=== PATIENT | male | born 1965 | race Caucasian/White ===

== ENCOUNTER 2024-12-12 16:18 | Inpatient (IN) | payer OTHER, SELFPAY ==
[2024-12-12] VITALS (27 sets, daily range): BP systolic 112–183; BP diastolic 70–136; PULSE 57–88; RESP 11–32; TEMP 36.8; O2SAT 90–96; BMI 33.5; BMI 33.9
--- NOTE | 2024-12-12 16:20 | XRR_ITS ---
PROCEDURE INFORMATION: Exam: XR Chest Exam date and time: 12/12/2024 4:23 PM Age: 59 years old Clinical indication: Pain; Chest pressure; Additional info: Chest pain; Stemi TECHNIQUE: Imaging protocol: Radiologic exam of the chest. 1 image(s) are submitted. Views: 1 view. COMPARISON: No relevant prior studies available. FINDINGS: Lungs: Low bilateral lung volume especially on the right side. Pleural spaces: Unremarkable. No pleural effusion. No pneumothorax. Heart/Mediastinum: Unremarkable. No cardiomegaly. Bones/joints: Unremarkable. XR/XR chest 1V portable [id number] IMPRESSION: Low bilateral lung volume especially on the right side. No focal pulmonary infiltrate, effusion or pneumothorax.
--- NOTE | 2024-12-12 16:20 | ECG_ITS ---
[employer] Test Date: 2024-12-12 Pat Name: Paul Shields Department: Room: Gender: Male Social Media Director: : 1965 Requested By: Ellyn Lackey Order Number: [id number] Moe MD: APURVA GILBERT Measurements Intervals [place] Rate: 94 P: 68 TN: 189 QRS: 37 QRSD: 82 T: 52 QT: 326 QTc: 408 Interpretive Statements SINUS RHYTHM ST ELEVATION, PROBABLY EARLY REPOLARIZATION [ST ELEVATION WITH NORMALLY INFLECTED T-WAVE] INTERPRETATION BASED ON A DEFAULT AGE OF 40 YEARS No previous ECG available for comparison Electronically Signed On 12-14-2024 10:50:18 CDT by APURVA GILBERT [id number]
--- NOTE | 2024-12-12 16:22 | W.ED.CHESTPA ---
HPI - Chest Pain General: Chief Complaint: Chest Pain Stated Complaint: cp Time Seen by Provider: 12/12/24 16:20 History of Present Illness: 59-year-old man with a history of diabetes and seizures who presents emergency room by ambulance for chest pain. This started approximately about an hour ago while he was outside working in his yard. He is continue to have some chest pain. EMS called and there was some abnormalities on EKG but there is quite a bit of interference. Discussed this with cardiology prior to arrival and at this point we were unclear about his symptoms and they were only about 5 minutes out so got him here and did an EKG and notify cardiology and a STEMI was called immediately after arrival. He says that he had had an heart attack before and had a cath but then they told him there was nothing wrong with his heart. This was over 10 years ago he says. Continues to have substernal chest pain and pressure. Related Data Allergies Allergy/AdvReac Type Severity Reaction Status Date / Time Sulfa (Sulfonamide Allergy Unknown Verified 12/12/24 16:26 Antibiotics) Review of Systems Narrative: Constitutional symptoms: Negative except as documented in HPI. Skin symptoms: Negative except as documented in HPI. Eye symptoms: Negative except as documented in HPI. ENMT symptoms: Negative except as documented in HPI. Respiratory symptoms: Negative except as documented in HPI. Cardiovascular symptoms: Negative except as documented in HPI. Gastrointestinal symptoms: Negative except as documented in HPI. Genitourinary symptoms: Negative except as documented in HPI. Musculoskeletal symptoms: Negative except as documented in HPI. Neurologic symptoms: Negative except as documented in HPI. Psychiatric symptoms: Negative except as documented in HPI. Endocrine symptoms: Negative except as documented in HPI. Physical Exam Narrative: EXAM NARRATIVE: General: Alert, no acute distress. Skin: Warm, dry. Head: Normocephalic, atraumatic. Neck: Supple, trachea midline. Eye: Extraocular movements are intact. Ears, nose, mouth and throat: mucosa moist. Cardiovascular: Regular, Normal peripheral perfusion. Respiratory: Lungs are clear to auscultation, respirations are non-labored, breath sounds are equal, Symmetrical chest wall expansion. Gastrointestinal: Soft, Nontender, Non distended Musculoskeletal: Normal ROM, no deformity. Neurological: Alert and oriented, No focal neurological deficit observed. Psychiatric: Cooperative, appropriate mood & affect. Course Vital Signs: Vital signs: Vital Signs Temperature 98.2 F 09/06/25 16:20 Pulse Rate 88 12/12/24 16:20 Respiratory Rate 18 12/12/24 16:20 Blood Pressure 143/92 12/12/24 16:32 Pulse Oximetry 96 12/12/24 16:20 Oxygen Delivery Me thod Room Air 12/12/24 16:20 MDM - Chest Pain Medical Decision Making Differential diagnosis for patient with chest pain includes but is not limited to and based on the above HPI, review of systems and physical exam: Pneumonia. unstable angina. angina. Acute coronary syndrome / [place]. Pulmonary embolism. Costochondritis / musculoskeletal. Pleurisy. Pericarditis. Esophageal spasm. Pancreatis. Cholecystitis. Orders placed to evaluate differential diagnosis based on the above differential, HPI and physical exam EKG: Time 1618. Rate 94. Normal sinus rhythm, ST elevation versus early repolarization in inferior leads., no ectopy, normal UT & QRS intervals, This was reviewed and interpreted by myself the ER physician at 1619 Lab Review: Laboratory results were reviewed and interpreted by myself the emergency room physician. Lab work is pending at the time of Senior Software Qa Analyst. Consultation: I spoke with Dr. Vasques who is on-call for cardiology. He reviewed the EKG. Given the patient is having active chest pain and abnormal EKG we are taking him straight to the Senior Software Qa Analyst. Senior Software Qa Analyst was activated. Assessment and plan: Chest pain Abnormal EKG ?Patient took a large amount of BC powder earlier. Over 800 mg. No aspirin here. He is receiving 600 of Plavix and a heparin bolus here in the emergency room. -I discussed the patient with the runner man on-call who is taking the patient to the Senior Software Qa Analyst.. - Discussed findings and plan with patient. Answered any questions. - Evaluation and treatment of this problem were appropriate in the emergency setting Lab Data 12/12/24 16:23 12/12/24 16:23 Laboratory Results WBC 9.79 10^3/uL (3.29-11.43) 12/12/24 16:23 RBC 6.39 10^6/uL (3.85-5.65) H 12/12/24 16:23 Hgb 17.60 g/dL (11.27-16.99) H 12/12/24 16:23 Hct 52.3 % (37-53) 12/12/24 16:23 MCV 81.8 fl (82-101) L 12/12/24 16:23 MCH 27.5 pg (27-33) 12/12/24 16:23 MCHC 33.7 g/dL (30-55) 12/12/24 16:23 RDW 12.2 % (12.1-15.1) 12/12/24 16:23 Plt Count 258 10^3/cmm (157-399) 12/12/24 16:23 MPV 8.9 fL (7.4-10.4) 12/12/24 16:23 Neut % (Auto) 61.7 % 12/12/24 16:23 Lymph % (Auto) 29.8 % 12/12/24 16:23 [place] % (Auto) 7.4 % 12/12/24 16:23 Eos % (Auto) 0.2 % 12/12/24 16:23 Baso % (Auto) 0.6 % 12/12/24 16:23 Neut # (Auto) 6.04 10^3/uL (1.8-7.7) 12/12/24 16:23 Lymph # (Auto) 2.9 10^3/uL (0.8-4.8) 12/12/24 16:23 [place] # (Auto) 0.7 10^3/uL (0.2-0.9) 12/12/24 16:23 Eos # (Auto) 0.0 10^3/uL (0.0-0.8) 12/12/24 16:23 Baso # (Auto) 0.1 10^3/uL (0.0-0.1) 12/12/24 16:23 Nucleated RBC % (auto) 0 % 12/12/24 16:23 Nucleated RBCs # 0.0 /100WBC 12/12/24 16:23 Sodium 139 mmol/L (136-145) 12/12/24 16:23 Potassium 4.2 mmol/L (3.5-5.1) 12/12/24 16:23 Chloride 103 mmol/L (98-107) 12/12/24 16:23 Carbon Dioxide 21 mmol/L (22-29) L 12/12/24 16:23 Anion Gap 19.2 (5-19) H 12/12/24 16:23 BUN 11 mg/dL (6-20) 12/12/24 16:23 Creatinine 0.4 mg/dL (0.7-1.2) L 12/12/24 16:23 GFR Calculation 220.2 mL/min (90-130) H 12/12/24 16:23 Glucose 165 mg/dL (65-115) H 12/12/24 16:23 Calculated Osmolality 291 mOsm/kg (285-295) 12/12/24 16:23 Calcium 9.6 mg/dL (8.5-10.5) 12/12/24 16:23 Total Bilirubin 0.4 mg/dL (0.15-1.2) 12/12/24 16:23 AST 23 U/L (0-40) 12/12/24 16:23 ALT 36 U/L (0-41) 12/12/24 16:23 Alkaline Phosphatase 90 U/L (40-130) 12/12/24 16:23 Troponin T Baseline 13 ng/L (0-15) 12/12/24 16:23 NT-Pro-B Natriuret Pep 37 pg/mL (0-125) 12/12/24 16:23 Total Protein 7.1 g/dL (6.6-8.7) 12/12/24 16:23 Albumin 4.6 g/dL (3.5-5.2) 12/12/24 16:23 Globulin 2.5 g/dL (1.3-4.6) 12/12/24 16:23 No radiology studies performed this visit Discharge Plan Discharge Patient Disposition: Admitted As Inpatient Clinical Impression: Unstable angina, Abnormal ECG Condition: Stable Coding Level of Care Code ED Safety Investigator/Cause Analyst for [employer]
[2024-12-12 16:29] LABS: Hematocrit 52.3 % (37-53); Hemoglobin 17.60 g/dL (11.27-16.99); Mean Corpuscular HGB Conc 33.7 g/dL (30-55); Mean Corpuscular Hemoglobin 27.5 pg (27-33); Mean Corpuscular Volume 81.8 fl (82-101); Nucleated Red Blood Cells % 0 %; Platelet Count 258 10^3/cmm (157-399); Red Blood Count 6.39 10^6/uL (3.85-5.65); White Blood Count 9.79 10^3/uL (3.29-11.43)
[2024-12-12] MEDS: heparin 5,000 unit/mL INJ 1 mL 4000 UNIT IVP (16:33)
[2024-12-12 16:48] LABS: Troponin(5th) Baseline 13 ng/L (0-15)
--- NOTE | 2024-12-12 16:48 | P.HP_ITS ---
Providers/Chief Complaint 2 Admitting Physician: Bird Vasques MD/ Interventional Cardiology Chief Complaint: Chest pain History of Present Illness Paul Shields is a 59 year old male with prior cardiac catheterizations per patient done in [place], has been brought by EMS with complaints of severe substernal chest pain radiating to the jaw and neck. Started this afternoon. Still having it. EKG shows Q waves in inferior leads with borderline ST elevation in inferior leads not meeting STEMI criteria. Cardiac labour market economist activated emergently. Review of Systems 2 Card: Reports: chest pain Medications/Allergies Allergies Allergy/AdvReac Type Severity Reaction Status Date / Time Sulfa (Sulfonamide Allergy Unknown Verified 12/12/24 16:26 Antibiotics) Vitals/I&O/Wt Last Vital Signs Temp 98.2 F 12/12/24 16:20 Pulse 88 12/12/24 16:20 Resp 18 12/12/24 16:20 BP 143/92 12/12/24 16:32 Pulse Ox 96 12/12/24 16:20 O2 Del Method Room Air 12/12/24 16:20 Weight last 48 hrs Weight 247 lb Physical Exam 2 Narrative: GENERAL: Patient is alert, awake and oriented x3. [] NECK: No jugular vein distension. [] HEENT: No cyanosis. No icterus. No pallor. [] HEART: Regular S1 and S2. No murmur, rub or gallop. [] LUNGS: Clear to auscultate bilaterally. [] CENTRAL NERVOUS SYSTEM: Grossly nonfocal. [] EXTREMITIES: Lower extremities with no edema bilaterally. Data 12/12/24 16:23 12/12/24 16:23 A&P Assessment and plan 1. Unstable angina: 2. Abnormal EC. Diabetes: Plan: Patient's chest pain is typical however EKG has borderline ST elevation and Q waves in inferior leads but not meeting STEMI criteria. Given his presentation, we will proceed with coronary angiogram with possible PCI. Risks and benefits of the procedure have been discussed with the patient. He understands these and wants to proceed. Patient took aspirin at home. Plavix loaded. Heparin bolus given Post procedure we will obtain echocardiogram. There are no labs in our system from before. Will follow up on labs We will consult medicine team post procedure for medical management PDMP PDMP Reviewed: Not Reviewed Attestations 2 Medical Necessity Statement*: Care expected to cross 2 midnights. Patient has presented with chest pain and EKG appears ischemic. Presentation of unstable angina, patient going urgently to labour market economist Coding Level of Care Code Acute Code for [facility] Fwd Diagnoses Unstable angina I20.0 Abnormal ECG R94.31 Diabetes E11.9
[2024-12-12 16:57] LABS: Alanine Aminotransferase 36 U/L (0-41); Albumin Level 4.6 g/dL (3.5-5.2); Alkaline Phosphatase 90 U/L (40-130); Aspartate Amino Transferase 23 U/L (0-40); Blood Urea Nitrogen 11 mg/dL (6-20); Calcium 9.6 mg/dL (8.5-10.5); Carbon Dioxide 21 mmol/L (22-29); Chloride 103 mmol/L (98-107); Globulin 2.5 g/dL (1.3-4.6); Glucose 165 mg/dL (65-115); NT Pro B Type Natriuretic Pept 37 pg/mL (0-125); Osmolality Calculated 291 mOsm/kg (285-295); Sodium 139 mmol/L (136-145); Total Protein 7.1 g/dL (6.6-8.7)
[2024-12-12 17:03] LABS: Creatinine Clr Calc Pharmacy 256.9916
[2024-12-12 17:04] LABS: Anion Gap 19.2 (5-19); Potassium 4.2 mmol/L (3.5-5.1)
--- NOTE | 2024-12-12 18:17 | PM.PROC ---
Procedure Note: Date of procedure: 12/12/24 Pre-procedure diagnosis: Unstable angina Post-procedure diagnosis: other (Severe proximal LAD stenosis s/p PCI with 2 stents) Procedure: Severe proximal LAD serial lesions s/p PCI with 2 stents. Patent RCA and LCx Dual antiplatelet therapy with aspirin and plavix High intensity statin therapy Order echocardiogram Performing Provider: Bird Vasques Estimated blood loss (mL): 10 Complications: None Condition: stable Disposition: ICU Coding Level of Care Code Acute Code for [employer]
--- NOTE | 2024-12-12 18:20 | ECG_ITS ---
[employer] Test Date: 2024-12-12 Pat Name: Paul Shields Department: Room: [facility]05 Gender: Male Senior Python Developer: : 1965 Requested By: Ellyn Lackey Order Number: [id number] Moe MD: APURVA GILBERT Measurements Intervals [place] Rate: 82 P: 65 [place]: 190 QRS: 28 QRSD: 105 T: 49 QT: 371 QTc: 435 Interpretive Statements SINUS RHYTHM POSSIBLE INFERIOR MYOCARDIAL INFARCTION , OF INDETERMINATE AGE [30 ms Q WAVE IN II/aVF] Compared to ECG 12/12/2024 16:18:58 Myocardial infarct finding now present ST (T wave) deviation no longer present Early repolarization no longer present Electronically Signed On 12-14-2024 10:55:01 CDT by APURVA GILBERT [email or web address] [id number]
--- NOTE | 2024-12-12 18:20 | PC.NURSE ---
Pt here for cardiac cath rn TR band noted to the right wrist with 16 ml of air in the TR band. Upon cardiac cath rn assessment a 2nd TR band was applied with 10 ml of air above original TR band for increased edema proximal to the TR band. aquatic life laborer staff unsure if this was due to tissue displacement or the beginning of a hematoma. Will closely monitor.
--- NOTE | 2024-12-12 18:52 | CTR_ITS ---
PROCEDURE INFORMATION: Exam: CTA Chest With Contrast Exam date and time: 12/12/2024 8:03 PM Age: 59 years old Clinical indication: Pain; Chest pressure; Prior surgery; Surgery date: Post-operative (0-2 days); Surgery type: Cardiac stent x 2; Additional info: Chest pain, immobility TECHNIQUE: Imaging protocol: Computed tomographic angiography of the chest with contrast. Exam focused on the arteries. 248 image(s) are submitted. 3D rendering (Not supervised by radiologist): MIP and/or 3D reconstructed images were created by the technologist. Radiation optimization: All CT scans at this facility use at least one of these dose optimization techniques: automated exposure control; mA and/or kV adjustment per patient size (includes targeted exams where dose is matched to clinical indication); or iterative reconstruction. Contrast material: [id number]; Contrast volume: 71 ml; Contrast route: INTRAVENOUS (IV); COMPARISON: CR (CHEST, ) 12/12/2024 4:23 PM RADIATION DOSE METRICS: Total DLP (mGy-cm): 473.33 FINDINGS: Pulmonary arteries: No evidence of pulmonary embolism. Right hilar mild lymphadenopathy. Extensive coronary artery calcification with coronary stent. No evidence of aortic aneurysm or dissection. Aorta: See Pulmonary arteries finding. Lungs: Hypoventilation of both lung with diffuse ground-glass opacity. No suspicious pulmonary nodule, infiltrate, effusion or pneumothorax. Pleural spaces: See Lungs finding. Heart: Unremarkable. No cardiomegaly. No pericardial effusion. Lymph nodes: See Pulmonary arteries finding. Intraperitoneal space: Metallic foreign body within transverse colon, partially visualized in the upper abdomen seen on image number [id number] with unclear etiology and clinical significance. No evidence of constipation or small bowel obstruction. No pneumoperitoneum. Bones/joints: Unremarkable. No acute fracture. Soft tissues: Unremarkable. CT/CT angio chest PE protcl [id number] IMPRESSION: 1. No evidence of pulmonary embolism. Right hilar mild lymphadenopathy. Extensive coronary artery calcification with coronary stent. No evidence of aortic aneurysm or lillian evidence of dissection. 2. Metallic possibly safia like foreign body 1.7 cm in diameter within transverse colon, partially visualized in the upper abdomen seen on image number [id number] with unclear etiology and clinical significance. No evidence of constipation or small bowel obstruction. No pneumoperitoneum. Follow-up x-ray of the abdomen with two-view is recommended. 3. Hypoventilation of both lung with diffuse ground-glass opacity. No suspicious pulmonary nodule, infiltrate, effusion or pneumothorax.
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
[2024-12-12] MEDS: morphine 4 mg/mL SDV 1 mL 2 MG IVP (19:16)
[2024-12-12] MEDS: iohexol 350 mg/mL 500 mL Btl (per mL) IV (20:05)
[2024-12-12 20:31] LABS: Cholesterol 292 mg/dL (0-200); HDL Cholesterol 44 mg/dL (60-100); Triglycerides 268 mg/dL (0-150)
[2024-12-12 20:49] LABS: Estmated Average Glucose 200; Hemoglobin A1C 8.6 % (4.0-6.0)
--- NOTE | 2024-12-12 22:00 | PC.NURSE ---
Addendum entered by Mila Manuel RN 12/13/24 03:33: 1st TR band removed at 0006, no bleeding or signs of hematoma air removal times 2 cc out 2216 2 cc out 2230 2 cc out 2230 2 cc out 2245 2 cc out 2302 2 cc out 2319 2 cc out 2336 2 cc out 2353 2 cc out 0005 Original Note: 2nd TR band removed at 2159. No signs of worsening of previously documented hematoma. No bleeding at access site Air removal times listed below 1 cc out at 2044 2cc out at 2101 2 cc out at 2116 2 cc out at 2131 2 cc out at 2146 1 cc out at 2158 RN will now begin to withdraw air from first TR Band
[2024-12-12 22:05] LABS: Troponin 5 6HR 53.46 ng/L (0-15)
[2024-12-12 22:08] LABS: Troponin 5 6HR Delta 40.46 ng/L (0-12)
--- NOTE | 2024-12-12 22:20 | ECG_ITS ---
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
[2024-12-12 23:28] LABS: PCP Screen Urine Negative (Negative)
[2024-12-13] VITALS (16 sets, daily range): BP systolic 119–153; BP diastolic 71–82; PULSE 57–71; RESP 14–27; TEMP 36.4–36.9; O2SAT 90–100
[2024-12-13 04:30] LABS: Hematocrit 46.0 % (37-53); Hemoglobin 15.20 g/dL (11.27-16.99); Mean Corpuscular HGB Conc 33.0 g/dL (30-55); Mean Corpuscular Hemoglobin 27.8 pg (27-33); Mean Corpuscular Volume 84.1 fl (82-101); Nucleated Red Blood Cells % 0 %; Platelet Count 208 10^3/cmm (157-399); Red Blood Count 5.47 10^6/uL (3.85-5.65); White Blood Count 6.63 10^3/uL (3.29-11.43)
[2024-12-13 05:03] LABS: Anion Gap 13.8 (5-19); Blood Urea Nitrogen 10 mg/dL (6-20); Calcium 8.6 mg/dL (8.5-10.5); Carbon Dioxide 24 mmol/L (22-29); Chloride 106 mmol/L (98-107); Glucose 127 mg/dL (65-115); Osmolality Calculated 291 mOsm/kg (285-295); Potassium 3.8 mmol/L (3.5-5.1); Sodium 140 mmol/L (136-145)
[2024-12-13 05:04] LABS: Creatinine Clr Calc Pharmacy 258.6375
--- NOTE | 2024-12-13 09:13 | XRR_ITS ---
PROCEDURE INFORMATION: Exam: XR Abdomen Exam date and time: 12/13/2024 9:21 AM Age: 59 years old Clinical indication: Other: Poss foreign body; Prior surgery; Surgery date: 6+ months; Surgery type: Cardiac stents; Additional info: Transvere colon metallic mass? ? TECHNIQUE: Imaging protocol: Radiologic exam of the abdomen. Views: Frontal supine view of the abdomen. 1 View. COMPARISON: CT angio chest PE protcl [id number] 12/12/2024 8:03 PM FINDINGS: Gastrointestinal tract: Bowel-gas pattern is nonspecific. No overly distended small bowel loop. Intraperitoneal space: Previously seen metallic density in the left upper quadrant is not present on today's study. There is an incompletely imaged metallic density with a diameter of 1.4 cm in the right lower quadrant. Bones/joints: Unremarkable. XR/XR KUB portable [id number] IMPRESSION: 1. Previously seen metallic density in the left upper quadrant is not present on today's study. 2. There is an incompletely imaged metallic density with a diameter of 1.4 cm in the right lower quadrant. This can be outside patient as well. Additional image of right lower quadrant for further evaluation is advised.
--- NOTE | 2024-12-13 10:06 | PC.PHAR ---
Addendum entered by Nancy Laguerre 12/13/24 10:34: [facility] [place]. Phone number for pharmacy in that area is [phone]. Verified medications with Rosanna Bingham. Original Note: Pt does not know what medications he takes. Left a message for his Irma, to call back for verification of medications. No word yet. 10:07am 12/12/24
--- NOTE | 2024-12-13 11:45 | P.PN_ITS ---
Subjective 2 Subjective: - Patient was seen this morning - No chest pain overnight - No fevers, no chills, no nausea, no vo miting abdominal pain - Discussed importance of aspirin and Pl avix especially now with his cardiac stent -High risk of stent thrombosis if he sto ps taking aspirin and Plavix - If any recurrent [facility] - [facility] Follow-up with cardiology - Discussed the CT scan finding shows 1. 7 cm metallic safia within the transverse colon - KUB this morning shows previously seen metallic density in the left upper quadrant is not present, potentially has moved to the right lower quadrant - Patient denies any swallowing batterie s or any bullets, or any metallic object - That he has been losing his teeth fill ing and he thinks he swallowed 1 recently - Likely it could be his metallic teeth filling - Currently no abdominal pain, no consti pation, no blood black stools discussed with him at that if he develops abdominal pain, or constipation or bloody black stools, or nausea or vomiting please go to the emergency room - See primary care provider this week to repeat KUB in a few days -Monitor for passage of metallic object or teeth filling - Discussed case with general surgery, Hailey Carrillo reviewed images with general surgery, they recommended continued monitoring, conservative intervention - Patient also had right hilar adenopath y, please follow-up with primary care provider, consider repeat CAT scan in 6 weeks - Hemoglobin A1c 8.6, discussed catarino puri of controlling his type 2 diabetes, blood sugar management -Blood sugar management as below -Please monitor your blood sugars closel y -Monitor your blood sugars 3 times daily as after meals -Please record your blood sugars, and a blood sugar log -For your NovoLog -Please inject blood sugar after meals b ased on sliding scale provided -Do not inject insulin if you do not eat as hypoglycemia kills -This is a NovoLog sliding scale -Insulin sliding ?fingerstick? Insulin ?141-180?0 units/sq 181-220?2 units/sq ?221-260?4 units/sq ?261-300 6 units/sq ?301-350?8 units/sq ?351-400 10 units/sq ?401-450?12 units/sq >450? 14units/sq -If your blood sugar is greater than 500 go to the emergency room -If your blood sugar is less than 60 or at anytime you feel lightheaded or dizzy or diaphoretic or have chest palpitations check your blood sugar, and eat a hard candy or drink orange juice and go immediately to the emergency room -Remember hypoglycemia kills, so if his blood sugar is less than 60 we have to increase it by taking in a sugary meal such as a hard candy or orange juice and go to the emergency room -If you have any questions please call u s where here to help - If you have any chest pain please go t o emergency room - Please follow-up with your primary car e provider next week for repeat KUB - If you have sudden onset abdominal astrid n, nausea, vomiting, or constipation please go to emergency room - You will likely pass a metallic object in your stool, continue to monitor - If you have chest pain please go to e emergency room, use nitroglycerin as needed for chest pain - Please monitor blood sugars closely, A 1c is 8.6 - Triglycerides is 268, cholesterol 292, LDL 194 -declines taking statin, discharged on e zetimibe -Monitor lipid panel as outpatient Vitals/I&O/Wt Last Vital Signs Temp 97.6 F 12/13/24 09:00 Pulse 60 12/13/24 06:00 Resp 22 H 12/13/24 06:00 BP 142/72 12/13/24 06:00 Pulse Ox 95 12/13/24 06:00 O2 Del Method Room Air 12/13/24 04:00 FiO2 2 12/12/24 19:00 12/12/24 12/13/24 12/13/24 22:59 06:59 14:59 Intake Total 667.5 / 667.5 1222 / 1222 Output Total 800 / 800 1200 / 2000 800 / 800 Balance -800 / -800 -532.5 / -1332.5 422 / 422 Weight last 48 hrs Weight 113.398 kg Weight 113.5 kg Weight 112.037 kg Physical Exam 2 Const: COMMON NORMALS: no acute distress and patient oriented x3 HENMT: COMMON NORMALS: normocephalic HEAD & SCALP: normocephalic Resp: COMMON NORMALS: normal respiratory effort, No retractions, No use of accessory muscles and clear to auscultation bilaterally AUSCULTATION: clear to auscultation bilaterally Cardio: COMMON NORMALS: regular rate, regular rhythm, S1 normal heart sound present and S2 normal heart sound present RATE: regular rate RHYTHM: r egular rhythm HEART SOUNDS: S1 normal heart sound present and S2 normal heart sound present GI: COMMON NORMALS: Normal to inspection, nondistended, normoactive bowel sounds present, Soft to palpation, non-tender, No hepatosplenomegaly present, no masses and no bruits PALPATION: Yes Soft to palpation and Yes No hepatosplenomegaly present OTHER: No guarding, no rebound, no rigidity Extremity: COMMON NORMALS: no calf tenderness and no pedal edema Neuro: COMMON NORMALS: patient oriented x3 Psych: COMMON NORMALS: mental status grossly normal Data 12/13/24 03:19 12/13/24 03:19 A&P Assessment and plan 1. STEMI (ST elevation myocardial infarction): 2. Diabetes: 3. History of epilepsy: 4. Chest pain: Plan: STEMI - Status post 2 stents to proximal LAD - On aspirin, statin Persistent chest pain, immobility, fall history - CT angiogram of chest negative for PE -increase IV fluids to 150 cc an hour decreased risk of contrast-induced neuropathy, will discharge this morning - Have primary care provider monitor kidney function as outpatient, hydrate well at home Anxiety, Xanax 0.5 mg twice daily Type 2 diabetes mellitus, A1c 8.6 Low-dose insulin/scale on discharge 1.4 to 1.7 cm metallic order transverse colon, possibly moving into right lower quadrant - Potential dental filling - Discussed with him to monitor closely - If any abdominal pain or nausea or vomiting or lack of stooling go to emergency room - Follow-up with primary care provider this week for repeat KUB Right hilar adenopathy, repeat CAT scan in 1 month History of epilepsy, continue Lamictal Patient will be discharged today PDMP PDMP Reviewed: Not Reviewed Attestations 2 Medical Necessity Statement*: Patient will be discharged today Diagnoses STEMI (ST elevation myocardial infarction) I21.3 Diabetes E11.9 History of epilepsy Z86.69 Chest pain R07.9
--- NOTE | 2024-12-13 12:44 | PC.NURSE ---
Patient brought to personal vehicle via wheelchair on room air. Patient discharge packet reviewed with patient and his . Extensive education provided on new medications. Written education reviewed with patient and family. Patient had no questions. Education provided on follow up appointment.
--- NOTE | 2024-12-13 13:42 | P.DS_ITS ---
Discharge Providers Date of Admission: 12/12/24 18:17 Date of Discharge: December 13, 2024 Attending Provider at Admission: Bird Vasques M.D Attending Provider at Discharge: Bird Vasques M.D Diagnoses at Discharge Discharge Diagnosis 1. Unstable angina: 2. Diabetes: 3. History of epilepsy: 4. Chest pain: 5. NSTEMI (non-ST elevated myocardial infarction): Reason for Visit Reason for Visit: Chest pain Brief History: 59 year old male with prior cardiac cath eterizations per patient done in [place], has been brought by EMS with complaints of severe substernal chest pain radiating to the jaw and neck. Started this afternoon. Still having it. EKG shows Q waves in inferior leads with borderline ST elevation in inferior leads not meeting STEMI criteria. 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 Hospital Course Hospital Course Patient had severe LAD stenosis and had PCI with 2 stents. Had CTA also performed not showing PE. Medicine team was consulted for medical issues management. CAT scan showed right hilar adenopathy and will need follow up imaging with PCP per medicine team . Patient discharged home on dual antiplatelet therapy in a stable condition. Close cardiology follow up. Physical Exam Narrative: GENERAL: Patient is alert, awake and oriented x3. [] NECK: No jugular vein distension. [] HEENT: No cyanosis. No icterus. No pallor. [] HEART: Regular S1 and S2. No murmur, rub or gallop. [] LUNGS: Clear to auscultate bilaterally. [] CENTRAL NERVOUS SYSTEM: Grossly nonfocal. [] EXTREMITIES: Lower extremities with no edema bilaterally. Discharge Data Studies Completed and Pending Completed Studies During Hospitalization Category Date Time Status CT angio chest PE protcl [id number] Stat Cat Scan 12/12/24 18:52 Completed XR KUB portable [id number] Stat Exams 12/13/24 09:13 Completed XR chest 1V portable [id number] Stat Exams 12/12/24 16:20 [place] [id number] Routine Ultrasound 12/13/24 18:32 Completed CV. echo complete* [id number] Routine Ultrasound 12/13/24 18:25 Completed Pending at discharge Category Date Time Status COMPLEX MANAGER request for service Stat Exams 12/12/24 16:38 Ordered Radiology Impressions Chest X-Ray 12/12/24 16:20 IMPRESSION: Low bilateral lung volume especially on the right side. No focal pulmonary infiltrate, effusion or pneumothorax. Chest CTA 12/12/24 18:52 IMPRESSION: 1. No evidence of pulmonary embolism. Right hilar mild lymphadenopathy. Extensive coronary artery calcification with coronary stent. No evidence of aortic aneurysm or lillian evidence of dissection. 2. Metallic possibly safia like foreign body 1.7 cm in diameter within transverse colon, partially visualized in the upper abdomen seen on image number [id number] with unclear etiology and clinical significance. No evidence of constipation or small bowel obstruction. No pneumoperitoneum. Follow-up x-ray of the abdomen with two-view is recommended. 3. Hypoventilation of both lung with diffuse ground-glass opacity. No suspicious pulmonary nodule, infiltrate, effusion or pneumothorax. KUB X-Ray 12/13/24 09:13 IMPRESSION: 1. Previously seen metallic density in the left upper quadrant is not present on today's study. 2. There is an incompletely imaged metallic density with a diameter of 1.4 cm in the right lower quadrant. This can be outside patient as well. Additional image of right lower quadrant for further evaluation is advised. Venous Duplex 12/13/24 18:32 IMPRESSION: No evidence of deep vein thrombosis. Laboratory Results WBC 6.63 10^3/uL (3.29-11.43) 12/13/24 03:19 RBC 5.47 10^6/uL (3.85-5.65) 12/13/24 03:19 Hgb 15.20 g/dL (11.27-16.99) 12/13/24 03:19 Hct 46.0 % (37-53) 12/13/24 03:19 MCV 84.1 fl (82-101) 12/13/24 03:19 MCH 27.8 pg (27-33) 12/13/24 03:19 MCHC 33.0 g/dL (30-55) 12/13/24 03:19 RDW 12.3 % (12.1-15.1) 12/13/24 03:19 Plt Count 208 10^3/cmm (157-399) 12/13/24 03:19 MPV 9.2 fL (7.4-10.4) 12/13/24 03:19 Neut % (Auto) 52.8 % 12/13/24 03:19 Lymph % (Auto) 37.1 % 12/13/24 03:19 [place] % (Auto) 8.7 % 12/13/24 03:19 Eos % (Auto) 0.5 % 12/13/24 03:19 Baso % (Auto) 0.6 % 12/13/24 03:19 Neut # (Auto) 3.50 10^3/uL (1.8-7.7) 12/13/24 03:19 Lymph # (Auto) 2.5 10^3/uL (0.8-4.8) 12/13/24 03:19 [place] # (Auto) 0.6 10^3/uL (0.2-0.9) 12/13/24 03:19 Eos # (Auto) 0.0 10^3/uL (0.0-0.8) 12/13/24 03:19 Baso # (Auto) 0.0 10^3/uL (0.0-0.1) 12/13/24 03:19 Nucleated RBC % (auto) 0 % 12/13/24 03:19 Nucleated RBCs # 0.0 /100WBC 12/13/24 03:19 D-Dimer <= 0.27 ug/mLFEU (0-0.59) 12/12/24 16:23 Sodium 140 mmol/L (136-145) 12/13/24 03:19 Potassium 3.8 mmol/L (3.5-5.1) 12/13/24 03:19 Chloride 106 mmol/L (98-107) 12/13/24 03:19 Carbon Dioxide 24 mmol/L (22-29) 12/13/24 03:19 Anion Gap 13.8 (5-19) 12/13/24 03:19 BUN 10 mg/dL (6-20) 12/13/24 03:19 Creatinine 0.4 mg/dL (0.7-1.2) L 12/13/24 03:19 GFR Calculation 220.2 mL/min (90-130) H 12/13/24 03:19 Glucose 127 mg/dL (65-115) H 12/13/24 03:19 POC Glucose 138 mg/dL (70-110) H 12/13/24 07:38 Estimat Average Glucose 200 12/12/24 16:23 Hemoglobin A1c 8.6 % (4.0-6.0) H 12/12/24 16:23 Calculated Osmolality 291 mOsm/kg (285-295) 12/13/24 03:19 Calcium 8.6 mg/dL (8.5-10.5) 12/13/24 03:19 Total Bilirubin 0.4 mg/dL (0.15-1.2) 12/12/24 16:23 AST 23 U/L (0-40) 12/12/24 16:23 ALT 36 U/L (0-41) 12/12/24 16:23 Alkaline Phosphatase 90 U/L (40-130) 12/12/24 16:23 Troponin T Baseline 13 ng/L (0-15) 12/12/24 16:23 Troponin T Hi Sens 6Hr 53.46 ng/L (0-15) H 12/12/24 21:26 Troponin T Hi Sens 6Hr Delta 40.46 ng/L (0-12) H* 12/12/24 21:26 NT-Pro-B Natriuret Pep 37 pg/mL (0-125) 12/12/24 16:23 Total Protein 7.1 g/dL (6.6-8.7) 12/12/24 16:23 Albumin 4.6 g/dL (3.5-5.2) 12/12/24 16:23 Globulin 2.5 g/dL (1.3-4.6) 12/12/24 16:23 Triglycerides 268 mg/dL (0-150) H 12/12/24 16:23 Cholesterol 292 mg/dL (0-200) H 12/12/24 16:23 LDL Cholesterol, Calc 194 mg/dL (50-129) H 12/12/24 16:23 HDL Cholesterol 44 mg/dL (60-100) L 12/12/24 16:23 LDL/HDL Ratio 4.41 RATIO (0.00-3.22) H 12/12/24 16:23 Cholesterol/HDL Ratio 6.64 mg/dL (1.0-5.00) H 12/12/24 16:23 Urine Opiates Screen Positive ng/mL (Negative) H 12/12/24 23:03 Ur Barbiturates Screen Negative ng/mL (Negative) 12/12/24 23:03 Ur Phencyclidine Scrn Negative ng/mL (Negative) 09/06/25 23:03 Ur Amphetamines Screen Negative ng/mL (Negative) 12/12/24 23:03 U Benzodiazepines Scrn Positive ng/mL (Negative) H 12/12/24 23:03 Urine Cocaine Screen Negative ng/mL (Negative) 12/12/24 23:03 U Marijuana (THC) Screen Negative ng/mL (Negative) 12/12/24 23:03 Vitals Last Vital Signs Temp 97.6 F 12/13/24 11:58 Pulse 71 12/13/24 11:58 Resp 14 12/13/24 11:58 BP 136/76 12/13/24 11:58 Pulse Ox 100 12/13/24 11:58 O2 Del Method Room Air 12/13/24 04:00 FiO2 2 12/12/24 19:00 Discharge Plan Discharge Patient Disposition: Home Condition: Stable Prescriptions: New clopidogrel 75 mg Tablet 75 mg PO DAILY Qty: 90 3RF amlodipine 5 mg Tablet 5 mg PO DAILY Qty: 90 2RF aspirin 81 mg Tablet,Delayed Release (Dr/Ec) 81 mg PO DAILY Qty: 90 3RF ezetimibe 10 mg tablet 10 mg PO DAILY Qty: 60 2RF (DME) glucometer testing kit See Rx Instructions .Route .MEDSUPPLY Qty: 1 0RF Rx Instructions: Glucometer testing kit Lancets #100 Strips #100 Check blood sugar 3 times daily, after meals nitroglycerin 0.4 mg Tablet, Sublingual 0.4 mg sublingual Q5M PRN (Reason: Chest Pain) 30 Days Qty: 30 0RF Continued sertraline 100 mg Tablet 200 mg PO DAILY tamsulosin 0.4 mg Capsule 0.4 mg PO BEDTIME trazodone 100 mg Tablet 100 mg PO BEDTIME PRN (Reason: Sleep) fluticasone propion-salmeterol [Advair Diskus] 100-50 mcg/dose Blister With Device 1 inh INHALATION BID albuterol sulfate 90 mcg/actuation Hfa Aerosol Inhaler 2 puff INHALATION Q6H PRN (Reason: Shortness Of Breath) Refresh Classic (PF) 1.4-0.6 % Dropperette 1 drp OPHTHALMIC (EYE) QID PRN (Reason: Dry Eyes) Jardiance 25 mg Tablet 25 mg PO DAILY Discontinued meloxicam 15 mg Tablet 15 mg PO DAILY No Action lamotrigine 200 mg tablet 200 mg PO BID One-A-Day Men's Multivitamin 400-20-300 mcg tablet PO losartan 100 mg tablet 100 mg PO DAILY Qty: 90 3RF metoprolol succinate 25 mg tablet extended release 24 hr 25 mg PO DAILY Qty: 90 3RF Repatha SureClick 140 mg/mL pen injector 140 mg SUBCUT .q 14 days Qty: 2 3RF Discharge Order = DC NOW: Discharge Order (Routine); Ordered 12/13/24 Ordered By: Ceferino Garibay Referrals: Bird Vasques M.D [Physician, Cardiology] - 1-3 days Patient Instructions: Chest Pain - Chest Wall, Type 2 Diabetes, Metoprolol (By mouth), Aspirin (By mouth), Amlodipine (By mouth), Nitroglycerin, Rapid Release (By mouth) (NitroMist, Nitrolingual,..., Clopidogrel (By mouth), Insulin Aspart, Recombinant (By injection) (Novolog, Novolog..., Ezetimibe (By mouth), How to Check your Blood Sugar (DC), Opioid Safety, Patient Portal & Yolanda Instructions Activity Restrictions/Additional Instructions: -Please monitor your blood sugars closely -Monitor your blood sugars 3 times daily as after meals -Please record your blood sugars, and a blood sugar log -For your NovoLog -Please inject blood sugar after meals based on sliding scale provided -Do not inject insulin if you do not eat as hypoglycemia kills -This is a NovoLog sliding scale -Insulin sliding ?fingerstick? Insulin ?141-180?0 units/sq 181-220?2 units/sq ?221-260?4 units/sq ?261-300 6 units/sq ?301-350?8 units/sq ?351-400 10 units/sq ?401-450?12 units/sq >450? 14units/sq -If your blood sugar is greater than 500 go to the emergency room -If your blood sugar is less than 60 or at anytime you feel lightheaded or dizzy or diaphoretic or have chest palpitations check your blood sugar, and eat a hard candy or drink orange juice and go immediately to the emergency room -Remember hypoglycemia kills, so if his blood sugar is less than 60 we have to increase it by taking in a sugary meal such as a hard candy or orange juice and go to the emergency room -If you have any questions please call us where here to help - If you have any chest pain please go to emergency room - Please follow-up with your primary care provider next week for repeat KUB - If you have sudden onset abdominal pain, nausea, vomiting, or constipation please go to emergency room - You will likely pass a metallic object in your stool, continue to monitor - If you have chest pain please go to the emergency room, use nitroglycerin as needed for chest pain - Please monitor blood sugars closely, A1c is 8.6 Discharge Attestations Time Spent in Discharge Care*: less than 30 min Quality Metrics Clinical Quality Measures [ No reported AMI, CVA or VTE this stay] Coding Level of Care Code Acute Code for Chg Fwd Diagnoses Unstable angina I20.0 Diabetes E11.9 History of epilepsy Z86.69 Chest pain R07.9 NSTEMI (non-ST elevated myocardial infarction) I21.4
--- NOTE | 2024-12-13 18:25 | USCV_ITS ---
Paul Shields Age: 59 Gender: M : 1965 Exam Date: 12/13/2024 09:00 Ordering Phys: Bird Vasques M.D ([email or web address]) Technologist: Juan Miguel Contreras Exam Location: [facility] [place] Indication: chest pain BP: 142 / 72 HR: 71 Rhythm: Sinus Technical Quality: Adequate MEASUREMENTS (Male / Female) Normal Values 2D ECHO LV Diastolic Diameter PLAX 6.0 cm 4.2 - 5.9 / 3.9 - 5.3 cm IVS Diastolic Thickness 1.1 cm 0.6 - 1.0 / 0.6 - 0.9 cm IVS Systolic Thickness 1.4 cm LVPW Diastolic Thickness 0.8 cm 0.6 - 1.0 / 0.6 - 0.9 cm LVPW Systolic Thickness 2.0 cm LVOT Diameter 2.0 cm LV Ejection Fraction 2D Teich 69.6 % LV Ejection Fraction MOD 4C 69.3 % LV Ejection Fraction MOD 2C 60.1 % LV Ejection Fraction 2C AL 60.1 % LA Diameter 4.6 cm RA Systolic Volume 4C AL 31.3 ml RA Systolic Volume 4C MOD 31.4 ml LA Sys Volume AL 57.5 cm cubed LA Sys Volume Index AL 23.6 cm cubed/m squared Aorta at Sinotubular Diameter 2.7 cm IVC Diameter 1.8 cm M-MODE LA Ao Ratio MM 1.1 AV Cusp Separation MM 1.6 cm DOPPLER AV Peak Velocity 162.0 cm/s LVOT Peak Velocity 107.0 cm/s AV Area Cont Eq vti 2.2 cm squared AV Area Cont Eq pk 2.2 cm squared MV Peak Velocity 98.0 cm/s MV Area PHT 4.9 cm squared Mitral E to A Ratio 0.8 TV Peak Velocity 261.5 cm/s TR Peak Velocity 300.0 cm/s TR Peak Gradient 36.0 mmHg TR Mean Velocity 253.0 cm/s TR Mean Gradient 26.9 mmHg TR Velocity Time Integral 79.3 cm PV Peak Velocity 101.3 cm/s RV Ejection Time 0.3 s FINDINGS Left Ventricle Normal left ventricular size and systolic function, EF 60-65%. No regional wall motion abnormalities. Grade 1 diastolic dysfunction Right Ventricle Normal right ventricular size and systolic function. Right Atrium Normal right atrial size. Left Atrium Normal left atrial size. Mitral Valve Mitral annular calcification. Mild mitral regurgitation. Aortic Valve Thickened aortic valve. No aortic valve stenosis. Tricuspid Valve Insufficient TR jet to calculate RVSP Pulmonic Valve Not well visualized Pericardium Normal Aorta Normal in size IVC Appears to be normal CONCLUSIONS LV systolic function is normal with EF of 60-65% Grade 1 diastolic dysfunction Mild mitral regurgitation No comparison studies are available. Bird Vasques MD (Electronically Signed) Final Date: 13 December 2024 11:01 S
--- NOTE | 2024-12-13 18:32 | USR_ITS ---
PROCEDURE INFORMATION: Exam: US Duplex Lower Extremity Veins, Bilateral Exam date and time: 12/13/2024 9:59 AM Age: 59 years old Clinical indication: Swelling (edema) of limb; Lower extremity, bilateral TECHNIQUE: Imaging protocol: Real-time duplex ultrasound of the bilateral extremities with 2-D perdue scale, color Doppler flow and spectral waveform analysis including responses to compression and other maneuvers (when performed) with image documentation. Complete exam focused on the lower extremity veins. COMPARISON: No relevant prior studies available. FINDINGS: Right deep veins: Unremarkable. The common femoral, femoral, proximal profunda femoral and popliteal veins are patent without thrombus. Normal Doppler waveforms. Normal compressibility and/or augmentation response. Posterior tibial and peroneal veins are patent. Normal compressibility. Left deep veins: Unremarkable. The common femoral, femoral, proximal profunda femoral and popliteal veins are patent without thrombus. Normal Doppler waveforms. Normal compressibility and/or augmentation response. Posterior tibial and peroneal veins are patent. Normal compressibility. Superficial veins: Greater saphenous veins at the saphenofemoral junctions are patent bilaterally without thrombus. Soft tissues: Unremarkable. US/[place] [id number] IMPRESSION: No evidence of deep vein thrombosis.
== END 2024-12-13 12:47 | disposition home or self-care (01) | DRG 322 ==
LOC: ER 16:47 → CCL 16:53 → ICU 18:17
PROVIDERS: Family Medicine; Admitting Provider Internal Medicine; Emergency Provider Emergency Medicine; Visit Provider Internal Medicine
PROC: 027035Z Dilation of Coronary Artery, One Artery with Two Drug-eluting Intraluminal Devices, Percutaneous Approach (ICD-10-PCS; principal; 2024-12-12 17:00)
PROC: 027035Z Dilation of Coronary Artery, One Artery with Two Drug-eluting Intraluminal Devices, Percutaneous Approach (ICD-10-PCS; 2024-12-12 17:00)
DX: I21.3 ST elevation (STEMI) myocardial infarction of unspecified site (principal); I25.10 Atherosclerotic heart disease of native coronary artery without angina pectoris; E11.9 Type 2 diabetes mellitus without complications; R56.9 Unspecified convulsions; I10 Essential (primary) hypertension; E78.5 Hyperlipidemia, unspecified; F41.9 Anxiety disorder, unspecified
CPT/HCPCS: 36415; 36416; 71045; 71275; 74018; 80048; 80053; 80061; 80306; 82962; 83036; 83880; 84484; 85025; 85347; 85378; 92978; 93005; 93306; 93454; 93970; 96372; 96374; 99152; 99153; 99285; C1725; C1753; C1769; C1874; C1887; C1894; C9606; J1644; J1650; J2250; J2270; J3010; J3490; J7030; J9999; Q9967

== ENCOUNTER → 2024-12-17 10:13 | Outpatient (BNVA) | payer OTHER, SELFPAY | PROVIDERS: Visit Provider Internal Medicine Cardiovascular Disease | DX: I25.10 Atherosclerotic heart disease of native coronary artery without angina pectoris (principal); I10 Essential (primary) hypertension; E78.2 Mixed hyperlipidemia; Z78.9 Other specified health status; Z79.02 Long term (current) use of antithrombotics/antiplatelets; Z79.82 Long term (current) use of aspirin; F17.220 Nicotine dependence, chewing tobacco, uncomplicated; Z95.5 Presence of coronary angioplasty implant and graft; I25.2 Old myocardial infarction | CPT/HCPCS: 99214 ==